=== PATIENT | male | born 1955 | race Caucasian/White ===

== ENCOUNTER → 2017-05-28 | Day surgery (SDC) | payer OTHER ==
[~2017-05-28] VITALS: Ht 180.3 cm; Wt 104.3 kg
[~2017-05-28] MED LIST: ADVAIR 250/501 EA INH; HUMALOG100 UNIT/1 SC; IPRATROPIUM BRO15 ML NAS; LANTUS SOL100 UNIT/1 SC; Motrin,Rufen400 MG PO; ZANTAC 150150 MG PO; ZEBETA10 MG PO
--- NOTE | ~2017-05-28 | O ---
[place], [place] OPERATIVE NOTE NAME: ANIBAL BRITT UNIT #: [id number] ROOM: DOCTOR: GRETTA ROLLINS MD BIRTHDATE: [birth year] DOS: 05/28/2017 HISTORY OF PRESENT ILLNESS: A 61-year-old patient who has presented with chief complaint of concern about colonic screening. ALLERGIES: To no known medication. SOCIAL HISTORY: Nonsmoker and social alcohol consumer. PAST MEDICAL HISTORY: Hypertension, COPD, diabetes mellitus. PAST SURGICAL HISTORY: Appendectomy. FAMILY HISTORY: Noncontributory. MEDICATION: The patient on ibuprofen. PROCEDURE: Today's procedure part of investigation is colonoscopy plus polypectomy. PREMEDICATION: Versed and Diprivan. SCOPE: Olympus forward-viewing colonoscope 10L video. REPORT: After putting the patient in the left lateral position and after application of lubricant to rectal pouch and digital examination, scope was introduced. Thereafter, under direct visualization, I advanced through the length of colon without difficulty. Presence of diverticula of moderate to severe degree in the left transverse and ascending colon and the cecum was identified. This is consistent with diverticulosis coli. Sessile polypoid lesion in the rectal pouch with piecemeal polypectomy removed. Air was suctioned out. After photographic series of the base of cecum and demonstration of appendiceal orifice, the patient was extubated, tolerated the procedure well. IMPRESSION: Diverticulosis coli, rectal pouch sessile polypoid lesion, status post piecemeal polypectomy. PLAN: High fiber fruit diet. ACTIVITY: Ad harry. FOLLOWUP: Routinely with you in office, p.r.n. visit with us in [facility]. I thank you very much again Dr. Noel for your kind referral. [place], [place] OPERATIVE NOTE NAME: ANIBAL BRITT UNIT #: [id number] ROOM: DOCTOR: GRETTA ROLLINS MD BIRTHDATE: [birth year] GRETTA ROLLINS MD CM:OPRECORD:OPERATIVE NOTE 1000 [id number] CAROLINE ROLLINS MD 05/28/17 1018 interface
[2017-05-28 08:00] VITALS: BP 132/71
[2017-05-28 09:58] VITALS: BP 114/74
[2017-05-28 10:13] VITALS: BP 103/71
[2017-05-28 10:28] VITALS: BP 116/67
== END | disposition home or self-care (01) ==
LOC: SDC 05-23 11:00
DX: Z12.11 Encounter for screening for malignant neoplasm of colon (principal); K62.1 Rectal polyp; I10 Essential (primary) hypertension; J44.9 Chronic obstructive pulmonary disease, unspecified; K21.9 Gastro-esophageal reflux disease without esophagitis; E11.9 Type 2 diabetes mellitus without complications; Z98.890 Other specified postprocedural states; Z87.891 Personal history of nicotine dependence; Z82.49 Family history of ischemic heart disease and other diseases of the circulatory system; Z90.49 Acquired absence of other specified parts of digestive tract

== ENCOUNTER → 2018-06-13 | Outpatient (CLI) | payer OTHER | END | disposition home or self-care (01) | LOC: LAB 13:29 | DX: N25.81 Secondary hyperparathyroidism of renal origin (principal); N18.3 Chronic kidney disease, stage 3 (moderate) ==

== ENCOUNTER → 2018-06-22 | Outpatient (CLI) | payer OTHER | END | disposition home or self-care (01) | LOC: US 12:42 | DX: N17.9 Acute kidney failure, unspecified (principal) ==